=== PATIENT | male | born 1970 | race Caucasian/White ===

== ENCOUNTER → 2016-08-25 | Outpatient (CLI) | payer BC ==
--- NOTE | 2016-08-25 15:09 | CT ---
EXAMINATION TYPE: CT chest w con DATE OF EXAM: 08/25/2016 3:03 PM COMPARISON: NONE HISTORY: Pt states of abnormal findings on CXR x1 week ago. Hx of left side broken ribs. CT DLP: 224.7 mGycm Automated exposure control for dose reduction was used. CONTRAST: CT scan of the chest is performed with IV Contrast, patient injected with 100 mL of Omnipaque 300. FINDINGS: LUNGS: Linear subsegmental atelectasis is seen in the region of the lingula as well as the basilar re gions right slightly greater than left. No definite focal consolidation. There is no concerning paren chymal mass or nodule identified. There is no pleural effusion or pneumothorax seen. The tracheobr onchial tree is patent. MEDIASTINUM: There are no greater than 1 cm hilar or mediastinal lymph nodes. No pericardial effusi on is seen. Thoracic aorta is of normal caliber. The heart is not enlarged. UPPER ABDOMEN: No significant abnormality appreciated. OTHER: No additional significant abnormality is seen. IMPRESSION: 1. Scattered areas of linear subsegmental atelectasis without consolidation at this time.
== END | disposition home or self-care (01) ==
LOC: RADCTMAIN 14:24
PROVIDERS: ATTEND Internal Medicine
DX: J98.11 Atelectasis (principal)
CPT/HCPCS: 71260; Q9967

== ENCOUNTER → 2024-10-15 | Day surgery (SDC) | payer BC ==
[~2024-10-15] MED LIST: LACTATED RINGERS 1,000 ML IV SCH; LIDOCAINE 1% INJ 10MG/ML (20 ML MDV) ONE; MIDAZOLAM 2 MG/2 ML VIAL ONE; PROPOFOL 10 MG/ML 20 ML VIAL IV ONE; fentaNYL (PF) 50 MCG/ML 2 ML AMP ONE
[2024-10-15] MEDS: IV FLUID CONTINUATION 1,000 ML IV ONE (10:31)
--- NOTE | 2024-10-15 12:30 | P.GSHP ---
History of Present Illness H&P Date: 10/15/24 CHIEF COMPLAINT: Colon screen HISTORY OF PRESENT ILLNESS: The patient is a 54-year-old male who presents for colon screen. Lower endoscopy was offered for further evaluation and management. PAST MEDICAL HISTORY: Please see list. PAST SURGICAL HISTORY: Please see list. MEDICATIONS: Please see list. ALLERGIES: Please see list. SOCIAL HISTORY: No illicit drug use FAMILY HISTORY: No reports of Crohn disease or ulcerative colitis. REVIEW OF ORGAN SYSTEMS: CONSTITUTIONAL: No reports of fevers or chills. PHYSICAL EXAM: VITAL SIGNS: Stable GENERAL: Well-developed pleasant in no acute distress. HEENT: No scleral icterus. Extraocular movements grossly intact. Moist buccal mucosa. NECK: Supple without lymphadenopathy. CHEST: Unlabored respirations. Equal bilateral excursions. CARDIOVASCULAR: Regular rate and rhythm. Distal 2+ pulses. ABDOMEN: Soft, nontender, nondistended. MUSCULOSKELETAL: No clubbing, cyanosis, or edema. ASSESSMENT: 1. Colon screen. PLAN: 1. Recommend proceeding with a lower endoscopy Medications and Allergies Home Medications Medication Instructions Recorded Confirmed Type Simvastatin [Zocor] 20 10/15/24 History allopurinoL [Zyloprim] 100 10/15/24 History Allergies Allergy/AdvReac Type Severity Reaction Status Date / Time No Known Allergies Allergy Verified 10/15/24 10:39 Surgical - Exam Vital Signs Temp Pulse Resp BP Pulse Ox 97.9 F 82 16 136/83 96 10/15/24 10:46 10/15/24 10:46 10/15/24 10:46 10/15/24 10:46 10/15/24 10:46
[2024-10-15] MEDS: IPRATROPIUM-ALBUTEROL 3 ML NEB INHALATION STA (12:44)
[2024-10-15 12:49] VITALS: TEMP 97
--- NOTE | 2024-10-15 12:57 | P.PCN ---
Date of Procedure: 10/15/24 Description of Procedure: PREOPERATIVE DIAGNOSIS: Abnormal Cologuard Colonoscopy screening, first Tobacco abuse disorder POSTOPERATIVE DIAGNOSIS: Tubular adenoma ascending colon Tubular adenoma cecum Tubular adenoma transverse colon Tubular adenoma descending colon Tubular adenoma sigmoid colon Sigmoid diverticulosis with diverticulitis Internal hemorrhoids, grade 2 OPERATION: Colonoscopy to the ileocecal valve and appendiceal orifice, cecum Colonoscopy with hot snare polypectomy SURGEON: Laura Aparicio MD. ANESTHESIA: MAC. INDICATIONS: The patient is an 54-year-old male who for his first colonoscopy screening following abnormal Cologuard. Benefits and risks were described and informed consent was obtained. DESCRIPTION OF PROCEDURE: The patient had undergone Sutab prep. The patient had been brought into the operating room and laid in the left lateral decubitus position. After adequate intravenous sedation, the rectum was examined with 2% lidocaine jelly. The prostate was unremarkable. No external hemorrhoids were encountered. The rectal tone was loose adding difficulty to the case for insufflation. No lesions were palpated in the rectal vault. An Olympus colonoscope was advanced until the cecum, ileocecal valve and appendiceal orifice were clearly viewed. The prep was good. Sigmoid diverticulosis with mild acute diverticulitis was encountered. Colonic polyps were found and removed. Retroflexion of the scope demonstrated grade 2 internal hemorrhoids without active bleeding or inflammation. The colon was desufflated. Patient went into the acute bronchial spasms requiring assessment and phase 1. 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 Withdrawal time was over 6 minutes. FINDINGS: Aronchick preparation quality scale 2 (1-5) Internal hemorrhoids, grade 2 No external hemorrhoids No arteriovenous malformations. Sigmoid diverticulosis with acute mild diverticulitis Removal of 12 polyps: - Snare polypectomy sigmoid colon, 15 mm tubulovillous adenoma, removed in piecemeal. - Snare polypectomy descending colon x 3, 8 to 12 mm tubular villous adenoma removed in piecemeal - Snare polypectomy transverse colon x 4, 10 to 14 mm tubular villous adenoma removed in piecemeal - Snare polypectomy ascending colon x 4, 8 to 12 mm tubular villous adenoma removed in piecemeal - Cecal polyps x 2, 3 to 4 mm unable to obtain RECOMMENDATIONS: 1. Strict tobacco cessation 2. Given severity of tubular adenomas, recommend repeat in 3 months, December 2024 for retrieval for additional polyps 3. Recommend alternate prep Plan - Discharge Summary New Discharge Prescriptions: Continue Simvastatin [Zocor] 20 allopurinoL [Zyloprim] 100 Discharge Medication List Simvastatin [Zocor] 20 10/15/24 [History] allopurinoL [Zyloprim] 100 10/15/24 [History] Follow up Appointment(s)/Referral(s): aLura Aparicio MD [STAFF PHYSICIAN] - 11/04/24 3:00 pm Patient Instructions/Handouts: Diverticulitis (DC), Colorectal Polyps (GEN), How to Stop Smoking (ED) Discharge Disposition: HOME SELF-CARE Care Plan Goals (MU): Repeat lower endoscopy in 3 to 6 months, December 2024
--- NOTE | 2024-10-15 13:18 | XR ---
EXAMINATION TYPE: XR chest 1V portable DATE OF EXAM: 10/15/2024 CLINICAL INDICATION: Male, 54 years old with history of Respiratory decline with anesthesia, TECHNIQUE: Single frontal view of the chest is obtained. COMPARISON: Chest CT 2017 FINDINGS: There is no focal air space opacity, pleural effusion, or pneumothorax seen. The cardiac silhouette size is within normal limits. The osseous structures are intact. IMPRESSION: No acute cardiopulmonary process. [facility], , 10/15/2024 1:16 PM
[2024-10-15 13:26] VITALS: RESP 16
[2024-10-15 13:44] VITALS: BP 119/77; PULSE 80
== END | disposition home or self-care (01) ==
LOC: ORWHC2ENDO 10:12
PROVIDERS: ATTEND Surgery Plastic and Reconstructive Surgery
DX: Z12.11 Encounter for screening for malignant neoplasm of colon (principal); D12.4 Benign neoplasm of descending colon; D12.3 Benign neoplasm of transverse colon; D12.2 Benign neoplasm of ascending colon; D12.5 Benign neoplasm of sigmoid colon; K64.1 Second degree hemorrhoids; K57.30 Diverticulosis of large intestine without perforation or abscess without bleeding
CPT/HCPCS: 88305; 71045; 45385; J2250; J2003; J3010; J2704

== ENCOUNTER 2025-02-04 09:59 | Day surgery (SDC) | payer BC ==
[2025-02-03 09:26] VITALS: BMI 29.2
--- NOTE | 2025-02-04 09:42 | P.GSHP ---
History of Present Illness H&P Date: 02/04/25 CHIEF COMPLAINT: Colon screen HISTORY OF PRESENT ILLNESS: The patient is a 54-year-old male who presents for colon screen. Lower endoscopy was offered for further evaluation and management. PAST MEDICAL HISTORY: Please see list. PAST SURGICAL HISTORY: Please see list. MEDICATIONS: Please see list. ALLERGIES: Please see list. SOCIAL HISTORY: No illicit drug use FAMILY HISTORY: No reports of Crohn disease or ulcerative colitis. REVIEW OF ORGAN SYSTEMS: CONSTITUTIONAL: No reports of fevers or chills. PHYSICAL EXAM: VITAL SIGNS: Stable GENERAL: Well-developed pleasant in no acute distress. HEENT: No scleral icterus. Extraocular movements grossly intact. Moist buccal mucosa. NECK: Supple without lymphadenopathy. CHEST: Unlabored respirations. Equal bilateral excursions. CARDIOVASCULAR: Regular rate and rhythm. Distal 2+ pulses. ABDOMEN: Soft, nontender, nondistended. MUSCULOSKELETAL: No clubbing, cyanosis, or edema. ASSESSMENT: 1. Colon screen. PLAN: 1. Recommend proceeding with a lower endoscopy Past Medical History Past Medical History: Hyperlipidemia Additional Past Medical History / Comment(s): hx colon polyps, gout History of Any Multi-Drug Resistant Organisms: None Reported Additional Past Surgical History / Comment(s): mult colon polyps removed September 2024 Additional Past Anesthesia/Blood Transfusion Reaction / Comment(s): no hx of general anesthesia or blood transfusions Smoking Status: Current every day smoker - Past Family History Mother Family Medical History: No Reported History Medications and Allergies Home Medications Medication Instructions Recorded Confirmed Type Simvastatin [Zocor] 20 mg PO DAILY 10/15/24 02/03/25 History allopurinoL [Zyloprim] 100 mg PO DAILY 10/15/24 02/03/25 History Allergies Allergy/AdvReac Type Severity Reaction Status Date / Time No Known Allergies Allergy Verified 02/03/25 09:19
[2025-02-04] MEDS: IV FLUID CONTINUATION 1,000 ML IV ONE (10:53)
[2025-02-04] MEDS: LACTATED RINGERS 1,000 ML IV SCH (10:55)
[2025-02-04 11:12] VITALS: TEMP 97.4
[2025-02-04] MEDS ORDERED: PROPOFOL 10 MG/ML 20 ML VIAL IV ONE (12:14)
[2025-02-04 12:50] VITALS: RESP 16
--- NOTE | 2025-02-04 12:55 | P.PCN ---
Date of Procedure: 02/04/25 Description of Procedure: PREOPERATIVE DIAGNOSIS: Colon adenomas POSTOPERATIVE DIAGNOSIS: Tubular adenoma transverse colon Tubular adenoma cecum Tubular adenoma ascending colon Acute sigmoid diverticulitis Sigmoid diverticulosis OPERATION: Colonoscopy to the ileocecal valve and appendiceal orifice, cecum Colonoscopy with hot snare polypectomy SURGEON: Laura Aparicio MD. ANESTHESIA: MAC. INDICATIONS: The patient is an 64-year-old male who presents family history of malignant colon polyps and personal history of colon polyps. Last colonoscopy 5 years. Benefits and risks were described and informed consent was obtained. DESCRIPTION OF PROCEDURE: The patient had undergone Sutab prep. The patient had been brought into the operating room and laid in the left lateral decubitus position. After adequate intravenous sedation, the rectum was examined with 2% lidocaine jelly. The prostate was unremarkable. No external hemorrhoids were encountered. The rectal tone was within normal limits. No lesions were palpated in the rectal vault. An Olympus colonoscope was advanced until the cecum, ileocecal valve and appendiceal orifice were clearly viewed. The prep was good. Acute sigmoid diverticulitis with sigmoid diverticulosis was encountered. Colonic polyps were found and removed. Retroflexion of the scope demonstrated grade 1 internal hemorrhoids without active bleeding or inflammation. The colon was desufflated. The patient had tolerated the procedure well. Withdrawal time was over 6 minutes. FINDINGS: Aronchick preparation quality scale 2 (1-5) Internal hemorrhoids, grade 1 No external hemorrhoids. No arteriovenous malformations. Sigmoid diverticulosis with acute sigmoid diverticulitis Removal of 8 polyps: - Snare polypectomy cecum x 2, 5 - 6 mm tubulovillous adenoma - Snare polypectomy ascending x 4, 4 - 8 mm flat tubulovillous adenoma - Snare polypectomy transverse colon x 2, 10 - 12 mm tubular adenoma RECOMMENDATIONS: Given severity of tubular adenomas, recommend repeat colonoscopy 2 years, 2026 Plan - Discharge Summary Discharge Rx Participant: No New Discharge Prescriptions: New Amoxic-Pot Clav 875-125Mg [Augmentin 875-125] 1 tab PO BID 1 Days #20 tab Continue Simvastatin [Zocor] 20 mg PO DAILY allopurinoL [Zyloprim] 100 mg PO DAILY Discharge Medication List Simvastatin [Zocor] 20 mg PO DAILY 10/15/24 [History] allopurinoL [Zyloprim] 100 mg PO DAILY 10/15/24 [History] Amoxic-Pot Clav 875-125Mg [Augmentin 875-125] 1 tab PO BID 1 Days #20 tab 02/04/25 [Rx] Follow up Appointment(s)/Referral(s): Laura Aparicio MD [STAFF PHYSICIAN] - 02/10/25 3:00 pm Patient Instructions/Handouts: Diverticulitis (DC), Colorectal Polyps (GEN), Diverticulitis Diet (DC) Activity/Diet/Wound Care/Special Instructions: Repeat colonoscopy 2 years, 2026 Discharge Disposition: HOME SELF-CARE
[2025-02-04 13:24] VITALS: BP 134/81; PULSE 75
== END 2025-02-04 13:48 | disposition home or self-care (01) ==
LOC: ORWHC2ENDO 09:59
PROVIDERS: ATTEND Surgery Plastic and Reconstructive Surgery
DX: D12.3 Benign neoplasm of transverse colon (principal); D12.0 Benign neoplasm of cecum; D12.2 Benign neoplasm of ascending colon; K57.32 Diverticulitis of large intestine without perforation or abscess without bleeding; K64.0 First degree hemorrhoids; E78.5 Hyperlipidemia, unspecified; M10.9 Gout, unspecified; F17.200 Nicotine dependence, unspecified, uncomplicated; Z79.899 Other long term (current) drug therapy; Z86.0100 Personal history of colon polyps, unspecified; Z80.0 Family history of malignant neoplasm of digestive organs
CPT/HCPCS: 45385; J2704